=== PATIENT | male | born 1960 | race Caucasian/White ===

== ENCOUNTER 2024-07-22 06:38 | Day surgery (SDC) | payer OTHER ==
[2024-07-20 09:32] VITALS: BMI 29.5
[2024-07-22] MEDS: ceFAZolin SODIUM 1 GM VIAL IVPB ONE (12:23)
[2024-07-22] MEDS ORDERED: MIDAZOLAM HCL 2 MG/2 ML SINGLE DOSE VIAL ONE (12:26)
[2024-07-22] MEDS ORDERED: PROPOFOL 20 ML ONE (12:26)
[2024-07-22 13:46] VITALS: RESP 20; TEMP 97
[2024-07-22 14:50] VITALS: BP 146/72; PULSE 56
== END 2024-07-22 14:30 | disposition home or self-care (01) ==
LOC: JASU-SURG 06:38
PROVIDERS: ATTEND Urology
PROC: 0TF3XZZ Fragmentation in Right Kidney Pelvis, External Approach (ICD-10-PCS; principal; 2024-07-22 10:15)
DX: N20.0 Calculus of kidney (principal)